=== PATIENT | female | born 1980 | race Caucasian/White ===

== ENCOUNTER 2020-06-23 15:39 | Outpatient (CLI) | payer OTHER | END 2020-06-23 15:40 | disposition home or self-care (01) | LOC: CTENTCT 15:39 | PROVIDERS: ATTEND Otolaryngology Plastic Surgery within the Head & Neck | DX: J32.8 Other chronic sinusitis (principal) | CPT/HCPCS: 70486 ==

== ENCOUNTER 2020-07-18 07:07 | Outpatient (CLI) | payer OTHER ==
[2020-07-18 19:38] LABS: BHCG - Serum Negative (NEGATIVE); Pregs Control Background? CLEAR/WHITE (CLR/WHITE); Pregs Control Bar Appear? YES (CONTROL BAR)
[2020-07-19 03:33] LABS: SARS-CoV-2 MS2 Positive; SARS-CoV-2 N Gene Negative; SARS-CoV-2 S Gene Negative; SARS-CoV-2 by NAA Not Detected (NotDetected); SARS-CoV-2 orf1ab Negative
== END 2020-07-18 07:08 | disposition home or self-care (01) ==
LOC: LABBT 07:07
PROVIDERS: ATTEND Otolaryngology Plastic Surgery within the Head & Neck
DX: Z01.812 Encounter for preprocedural laboratory examination (principal); J32.8 Other chronic sinusitis; J35.3 Hypertrophy of tonsils with hypertrophy of adenoids; J34.3 Hypertrophy of nasal turbinates; Z20.828 Contact with and (suspected) exposure to other viral communicable diseases
CPT/HCPCS: 84703; 85014; 87635; U0003

== ENCOUNTER 2020-07-23 07:22 | Day surgery (SDC) | payer OTHER ==
[2020-07-22 13:57] VITALS: BMI 29.0
[2020-07-23] MEDS ORDERED: AFRIN NASAL MIST 15 ML BOT ONE ×2 (08:12→08:20)
[2020-07-23] MEDS ORDERED: Midazolam HCl 2 mg/2 ml Vial ONE ×2 (08:35→09:01)
[2020-07-23] MEDS ORDERED: Fentanyl 100 MCG/2 ML VIAL ONE ×3 (08:35→10:47)
[2020-07-23] MEDS ORDERED: Lidocaine 1% w/Epinephrine 1:100K 20 ML VIAL ONE (08:38)
[2020-07-23] MEDS ORDERED: methylPREDNISolone Acetate 40 mg/ml Vial ONE (09:36)
[2020-07-23] MEDS ORDERED: Lidocaine 1% PF 5 ML VIAL ONE (10:40)
[2020-07-23] MEDS ORDERED: Glycopyrrolate 0.2 MG/ML 5 ML SYRINGE ONE (10:40)
[2020-07-23] MEDS ORDERED: Dexamethasone 20 MG/5 ML VIAL ONE (10:40)
[2020-07-23] MEDS ORDERED: Ondansetron PF 4 MG/2 ML Vial ONE (10:40)
[2020-07-23] MEDS ORDERED: Rocuronium Bromide 10 MG/ML (10ML VIAL) ONE (10:40)
[2020-07-23] MEDS ORDERED: PROPOFOL 200 MG/20 ML VIAL ONE (10:40)
[2020-07-23] MEDS ORDERED: Ferric Subsulfate (ASTRINGYN) 8 GM VIAL ONE (11:23)
[2020-07-23] MEDS ORDERED: Hydrocodone-Acetamin 15 ML UDCUP ONE (11:37)
[2020-07-23] MEDS ORDERED: Promethazine HCl 25 MG/ML VIAL ONE ×2 (12:48→13:13)
--- NOTE | 2020-07-23 15:48 | OP ---
DATE OF PROCEDURE: 07/23/2020 PREOPERATIVE DIAGNOSES: 1. Chronic rhinosinusitis. 2. Bilateral inferior turbinate hypertrophy. 3. Nasal obstruction. 4. Chronic adenotonsillitis. 5. Adenotonsillar hypertrophy. POSTOPERATIVE DIAGNOSES: 1. Chronic rhinosinusitis. 2. Bilateral inferior turbinate hypertrophy. 3. Nasal obstruction. 4. Chronic adenotonsillitis. 5. Adenotonsillar hypertrophy. PROCEDURES PERFORMED: 1. Bilateral endoscopic sinus surgery, total ethmoidectomies. 2. Bilateral endoscopic sinus surgery, maxillary antrostomies. 3. Bilateral endoscopic sinus surgery, frontal sinus exploration. 4. Bilateral inferior turbinate submucosal resection. 5. Tonsillectomy and adenoidectomy. ESTIMATED BLOOD LOSS: 20 mL. COMPLICATIONS: None. ANESTHESIA: GETA. PROCEDURE IN DETAIL: After consent was obtained, the patient was identified, brought to the operating room, and placed on the operating table in the supine position. General endotracheal anesthesia and intravenous access were obtained and we proceeded with positioning the patient for oropharyngeal surgery. Oropharyngeal exposure was obtained with a Roly-Tonio mouth gag after a head drape was placed and secured with a towel clip. The Roly-Tonio mouth gag was then suspended from the Quinonez tray and palatal elevation was achieved with a red rubber catheter. The right tonsil was addressed first. We used a curved Allis to grasp the tonsil and retract it medially as an anterior pillar incision was made. The retrotonsillar fascial plane was then established and blunt dissection was performed with the suction cautery. Blood vessels were anticipated, identified, and cauterized as they were encountered. Ultimately, dissection was carried to the posterior tonsillar pillar mucosa which was incised hemostatically, as well as the base of tongue connection. The tonsil was then passed off as a specimen and bleeding points within the tonsillar bed were cauterized under direct visualization. We subsequently turned our attention to the contralateral side, where using a similar technique, a near identical procedure was performed. Again, the tonsil was grasped and retracted medially with a curved Allis. The retrotonsillar fascial plane was established and while the anterior pillar was retracted medially. The hemostatic blunt dissection of the tonsil with a suction cautery was performed with blood vessels anticipated, identified, and cauterized as they were encountered. Again, dissection continued to the base of tongue and posterior tonsillar pillar mucosa which was incised in a hemostatic fashion. The tonsillar beds were then carefully inspected and bleeding points were identified and cauterized with a suction cautery. After this portion of the procedure, hemostasis was completely obtained. Under direct mirror visualization, we visualized the adenoid pad. Under direct mirror visualization, we removed the bulk of the adenoid tissue with the adenoid curette. We then packed the nasopharynx for an appropriate period of time with [id number] tonsillar sponges. After a period of observation, we removed the pack. Under indirect mirror visualization, we obtained hemostasis and vaporization of residual adenoid tissue with electrocautery. The patient's oral cavity was copiously irrigated with iced saline and subsequently suctioned. After completion of the procedure, the nasal cavity and oropharynx were irrigated and suctioned as were the gastric contents. The patient was then awakened and transferred to the recovery room where the patient remained in stable condition prior to discharge to Day Stay. Following that, a 0-degree endoscope was advanced in the nasal cavity. 1% lidocaine with 1:100,000 epinephrine was injected into the middle turbinates, inferior turbinates, and lateral nasal wall bilaterally. Following this, the middle turbinates were gently medialized with a [place] elevator and the uncinate process was visualized bilaterally. The uncinate was then anteriorly fractured bilaterally using a ball-ended probe and was removed using the 0-degree microdebrider and up-biting Blakesley forceps bilaterally. Following this, the natural maxillary sinus ostia was identified using the ball-ended probe and a 40-degree microdebrider blade along with the straight Blakesley forceps were used to widen the maxillary antrostomy bilaterally. Following this, ethmoidal bulla was identified and was punctured on its medial and inferior aspect using the 0-degree microdebrider blade bilaterally. The ethmoid bulla and anterior ethmoidal cells were opened using the 0-degree and 40-degree microdebrider blade bilaterally. Following this, the grand lamella was identified and was punctured into the posterior ethmoidal cells using the 0-degree microdebrider bilaterally. Working from posterior to anterior, the ethmoidal cells were opened using the 0-degree microdebrider, 40-degree microdebrider, and up-biting Blakesley forceps bilaterally. Following this, 45-degree endoscope was used to visualize the frontal sinus ostia, which was then widened using a 40-degree microdebrider blade and up-biting Blakesley forceps bilaterally. Following this, the inferior turbinates were then punctured on the anterior and inferior aspect and submucosal resection was made of the anterior and inferior portions of the inferior turbinates bilaterally. Following this, the nasal cavity was irrigated. NasoPore packing was placed within the middle meatus. The patient tolerated the procedure well. Job ID: [id number]
== END 2020-07-23 14:10 | disposition home or self-care (01) ==
LOC: SDC 07:22
PROVIDERS: ATTEND Otolaryngology Plastic Surgery within the Head & Neck
PROC: 09BT8ZZ Excision of Left Frontal Sinus, Via Natural or Artificial Opening Endoscopic (ICD-10-PCS; principal; 2020-07-23)
PROC: 099R8ZZ Drainage of Left Maxillary Sinus, Via Natural or Artificial Opening Endoscopic (ICD-10-PCS; principal; 2020-07-23)
PROC: 09BU8ZZ Excision of Right Ethmoid Sinus, Via Natural or Artificial Opening Endoscopic (ICD-10-PCS; principal; 2020-07-23)
PROC: 099Q8ZZ Drainage of Right Maxillary Sinus, Via Natural or Artificial Opening Endoscopic (ICD-10-PCS; principal; 2020-07-23)
PROC: 0CTPXZZ Resection of Tonsils, External Approach (ICD-10-PCS; principal; 2020-07-23)
PROC: 09BM8ZZ Excision of Nasal Septum, Via Natural or Artificial Opening Endoscopic (ICD-10-PCS; principal; 2020-07-23)
PROC: 09BL8ZZ Excision of Nasal Turbinate, Via Natural or Artificial Opening Endoscopic (ICD-10-PCS; principal; 2020-07-23)
PROC: 0CTQXZZ Resection of Adenoids, External Approach (ICD-10-PCS; principal; 2020-07-23)
PROC: 09BV8ZZ Excision of Left Ethmoid Sinus, Via Natural or Artificial Opening Endoscopic (ICD-10-PCS; principal; 2020-07-23)
PROC: 09BS8ZZ Excision of Right Frontal Sinus, Via Natural or Artificial Opening Endoscopic (ICD-10-PCS; principal; 2020-07-23)
DX: J35.03 Chronic tonsillitis and adenoiditis (principal); J32.8 Other chronic sinusitis; J34.3 Hypertrophy of nasal turbinates; J34.89 Other specified disorders of nose and nasal sinuses; Z79.899 Other long term (current) drug therapy; Z88.5 Allergy status to narcotic agent; Z88.6 Allergy status to analgesic agent
CPT/HCPCS: 88304; J1100; J2250; J2405; J2550; J2704; J2920; J3010